=== PATIENT | male | born 1940 | race Two or more races ===

== ENCOUNTER → 2022-08-17 | Outpatient (CLI) | payer MEDICARE, OTHER | END | disposition home or self-care (01) | LOC: LAB 15:40 | PROVIDERS: ATTEND Family Medicine | DX: C44.619 Basal cell carcinoma of skin of left upper limb, including shoulder (principal) | CPT/HCPCS: 88302 ==

== ENCOUNTER 2022-10-10 11:42 | Inpatient (IN) | payer MEDICARE, OTHER ==
[~2022-10-10] VITALS: Ht 172.7 cm; Wt 59.4 kg
[2022-10-10 13:28] LABS: Hematocrit 43.1 % (41.0-53.0); Hemoglobin 14.6 g/dL (13.5-17.5); Mean Corpuscular Hemoglobin 31.5 pg (28.0-32.0); Mean Corpuscular Hgb Conc. 33.9 g/dL (32.0-36.0); Mean Corpuscular Volume 92.9 fL (80.0-100.0); Red Blood Cells 4.63 10^6/uL (4.5-5.90); Red Cell Distribution Width 13.6 % (11.8-14.3); White Blood Cell 7.2 10^3/uL (4.4-10.8)
[2022-10-10 13:33] LABS: Basophils % (manual) 0 (0.0-2.0); Blast Cells 0; Metamyelocytes % 0; Myelocytes % 0; Promyelocytes % 0; Reactive Lymphocytes 0
[2022-10-10 13:57] LABS: Calcium 9.6 mg/dL (8.5-10.1); Potassium 3.7 mmol/L (3.5-5.1)
[2022-10-10 14:03] LABS: Albumin 3.3 g/dL (3.4-5.0); BUN/Creatinine Ratio 32.6 (10.0-20.0); Magnesium 2.1 mg/dL (1.6-2.6); Total Protein 6.1 g/dL (6.4-8.2)
[2022-10-10 14:08] LABS: Band Neutrophils % (manual) 1; Eosinophils % (manual) 1 (0-7); Lymphocytes % (manual) 16 (10.0-50.0); Monocytes % (manual) 18 (0-12)
[2022-10-10] MEDS ORDERED: ACETAMINOPHEN 325 MG TAB PO PRN (15:45)
[2022-10-10] MEDS ORDERED: DEXTROSE (50%) 50ML SYRG IV PRN (15:45)
[2022-10-10] MEDS ORDERED: BRIM0.2S17 RIGHTEYE (15:47)
[2022-10-10] MEDS ORDERED: METF-370 (15:47)
[2022-10-10] MEDS ORDERED: ATOR20TA (15:47)
[2022-10-10] MEDS ORDERED: CARV6.2551 PO (15:47)
[2022-10-10] MEDS ORDERED: LISI20TA28 (15:47)
[2022-10-10] MEDS ORDERED: CLOP75TA70 PO (15:47)
[2022-10-10] MEDS ORDERED: TAM04C (15:47)
[2022-10-10] MEDS ORDERED: ATOR40TA52 PO (15:47)
[2022-10-10] MEDS ORDERED: SPIR25TA8 PO (15:47)
[2022-10-10] MEDS: SODIUM CHLORIDE 0.9% 1,000 ML IV SCH (16:06)
[2022-10-10] MEDS: HYDROcodone-ACET 5/325MG TAB PO PRN (16:06)
[2022-10-10] MEDS: ACCU-CHEK COMFORT CURVE STRIP VI SCH ×2 (17:19→23:42)
[2022-10-10] MEDS: InsuLIN REG 1unit/0.01ml Soln (100units/ml) SC SCH ×2 (17:23→23:55)
[2022-10-10 18:18] LABS: Urine Bacteria NONE SEEN /hpf (None Seen); Urine Blood Negative /uL (Negative); Urine Mucus FEW (None Seen); Urine Specific Gravity 1.035 (1.001-1.035); Urine WBC 2 /hpf (0 - 3)
[2022-10-10] MEDS: SPIRONOLACTONE 25 MG TAB PO SCH (23:43)
[2022-10-10] MEDS: ATORVASTATIN 20 MG TAB PO SCH (23:43)
[2022-10-10] MEDS: CARVEDILOL 3.125 MG TAB PO SCH (23:44)
[2022-10-10] MEDS: LISINOPRIL 20 MG TAB PO SCH (23:45)
[2022-10-11 01:59] VITALS: BP 127/77
[2022-10-11 05:00] VITALS: BP 150/83
[2022-10-11] MEDS: InsuLIN REG 1unit/0.01ml Soln (100units/ml) SC SCH ×4 (06:10→22:40)
[2022-10-11] MEDS: ACCU-CHEK COMFORT CURVE STRIP VI SCH ×4 (06:10→22:35)
[2022-10-11 08:23] VITALS: BP 156/82
[2022-10-11] MEDS ORDERED: CLOP75TA70 PO (08:42)
[2022-10-11] MEDS ORDERED: ASPI-378 PO (08:42)
[2022-10-11] MEDS ORDERED: CARV6.2551 PO (08:42)
[2022-10-11] MEDS ORDERED: ATOR40TA52 PO (08:42)
[2022-10-11] MEDS ORDERED: ACET-1156 PO (08:42)
[2022-10-11] MEDS ORDERED: SITA50TA PO (08:45)
[2022-10-11] MEDS ORDERED: LISI-283 PO (08:45)
[2022-10-11] MEDS ORDERED: NITR0.4D5 TD (08:45)
[2022-10-11] MEDS: SODIUM CHLORIDE 0.9% 1,000 ML IV SCH ×2 (09:38→22:34)
[2022-10-11] MEDS: SPIRONOLACTONE 25 MG TAB PO SCH ×2 (09:38→22:33)
[2022-10-11] MEDS: TAMSULOSIN HYDROCHLORIDE 0.4 MG CAP PO SCH (09:39)
[2022-10-11] MEDS: CARVEDILOL 3.125 MG TAB PO SCH ×2 (09:39→18:45)
[2022-10-11] MEDS: LISINOPRIL 20 MG TAB PO SCH ×2 (09:39→22:34)
[2022-10-11] MEDS: CLOPIDOGREL BISULFATE 75 MG TAB PO SCH (09:39)
[2022-10-11 09:41] LABS: Basophils # (auto) 0 10 ^3/uL (0-0.2); Basophils % (auto) 0.5 % (0.0-2.0); Eosinophils # (auto) 0.1 10 ^3/uL (0-0.8); Eosinophils % (auto) 0.8 % (0.0-7.0); Hematocrit 40.6 % (41.0-53.0); Lymphocytes # (auto) 0.9 10 ^3/uL (0.4-5.4); Lymphocytes % (auto) 11.2 % (10.0-50.0); Mean Corpuscular Hgb Conc. 34.6 g/dL (32.0-36.0); Mean Corpuscular Volume 92.6 fL (80.0-100.0); Monocytes # (auto) 1.4 10 ^3/uL (0-1.3); Monocytes % (auto) 17.4 % (0.0-12.0); Neutrophils # (auto) 5.6 10 ^3/uL (1.6-8.6); Neutrophils % (auto) 70.1 % (37.0-80.0); Nucleated Red Blood Cells % 0.2 %; Red Blood Cells 4.38 10^6/uL (4.5-5.90); Red Cell Distribution Width 13.6 % (11.8-14.3)
[2022-10-11] MEDS ORDERED: PATIENTS OWN MEDICATION (Atorvastatin Calcium 1 TAB) PO SCH (10:00)
[2022-10-11 10:14] LABS: Albumin 2.8 g/dL (3.4-5.0); Calcium 8.6 mg/dL (8.5-10.1); Potassium 3.1 mmol/L (3.5-5.1)
[2022-10-11 10:18] LABS: BUN/Creatinine Ratio 28.3 (10.0-20.0); Bilirubin, Total 0.9 mg/dL (0.2-1.0); Total Protein 5.8 g/dL (6.4-8.2)
[2022-10-11] MEDS ORDERED: POTASSIUM EFFERVESENT TAB 25 MEQ PO ONE (12:15)
[2022-10-11 13:00] VITALS: BP 143/84
[2022-10-11] MEDS ORDERED: cloNIDine HCL 0.1 MG TAB PO ONE (16:30)
[2022-10-11] MEDS ORDERED: ONDANSETRON HCL 4 MG/2 ML VIAL IV ONE (16:30)
[2022-10-11] MEDS ORDERED: LABETALOL HCL 5 MG/ML 4ML SYRINGE IV ONE (16:30)
[2022-10-11 17:30] VITALS: BP 176/100
[2022-10-11] MEDS ORDERED: CALCIUM W/VIT D (600MG/400IU) TAB PO ONE (18:45)
[2022-10-11] MEDS ORDERED: CALCITONIN 400unit/2ml Vial (200unit/ml) SC ONE (18:45)
[2022-10-11 22:02] VITALS: BP 127/76
[2022-10-11] MEDS: ATORVASTATIN 20 MG TAB PO SCH (22:34)
[2022-10-12 05:00] VITALS: BP 125/80
[2022-10-12] MEDS: ACCU-CHEK COMFORT CURVE STRIP VI SCH ×4 (06:05→22:20)
[2022-10-12] MEDS: CARVEDILOL 3.125 MG TAB PO SCH ×2 (06:05→17:59)
[2022-10-12] MEDS: InsuLIN REG 1unit/0.01ml Soln (100units/ml) SC SCH ×4 (06:07→22:22)
[2022-10-12 06:52] LABS: Albumin 2.8 g/dL (3.4-5.0); Calcium 9.1 mg/dL (8.5-10.1); Potassium 3.4 mmol/L (3.5-5.1)
[2022-10-12 06:55] LABS: Bilirubin, Total 0.8 mg/dL (0.2-1.0); Total Protein 5.7 g/dL (6.4-8.2)
[2022-10-12 08:44] VITALS: BP 121/72
[2022-10-12] MEDS: TAMSULOSIN HYDROCHLORIDE 0.4 MG CAP PO SCH (09:30)
[2022-10-12] MEDS: LISINOPRIL 20 MG TAB PO SCH ×2 (09:30→22:11)
[2022-10-12] MEDS: CLOPIDOGREL BISULFATE 75 MG TAB PO SCH (09:30)
[2022-10-12] MEDS: CALCIUM W/VIT D (600MG/400IU) TAB PO SCH ×2 (09:30→17:59)
[2022-10-12] MEDS: SPIRONOLACTONE 25 MG TAB PO SCH ×2 (09:30→22:10)
[2022-10-12] MEDS: CALCITONIN 200 UNIT/SPRAY NASAL SCH (10:00)
[2022-10-12 13:00] VITALS: BP 154/96
[2022-10-12 16:34] VITALS: BP 145/63
[2022-10-12] MEDS: SODIUM CHLORIDE 0.9% 1,000 ML IV SCH (17:45)
[2022-10-12 22:00] VITALS: BP 149/67
[2022-10-12] MEDS: ATORVASTATIN 20 MG TAB PO SCH (22:10)
[2022-10-12 23:05] LABS: Folate (Folic Acid) 8.59 ng/mL (5.38-24)
[2022-10-12 23:10] LABS: Cholesterol 111 mg/dL (< 200)
[2022-10-12 23:13] LABS: HDL Cholesterol 41 mg/dL (40-59); LDL Cholesterol 64 mg/dL (< 100); Triglycerides 89 mg/dL (< 150)
[2022-10-13 05:00] VITALS: BP 152/90
[2022-10-13] MEDS: ACCU-CHEK COMFORT CURVE STRIP VI SCH ×4 (06:05→21:35)
[2022-10-13] MEDS: CARVEDILOL 3.125 MG TAB PO SCH ×2 (06:07→18:30)
[2022-10-13] MEDS: InsuLIN REG 1unit/0.01ml Soln (100units/ml) SC SCH ×4 (06:15→21:40)
[2022-10-13] MEDS: CLOPIDOGREL BISULFATE 75 MG TAB PO SCH (08:30)
[2022-10-13] MEDS: SPIRONOLACTONE 25 MG TAB PO SCH ×2 (08:30→21:34)
[2022-10-13] MEDS: TAMSULOSIN HYDROCHLORIDE 0.4 MG CAP PO SCH (08:30)
[2022-10-13] MEDS: LISINOPRIL 20 MG TAB PO SCH ×2 (08:31→21:34)
[2022-10-13] MEDS: CALCIUM W/VIT D (600MG/400IU) TAB PO SCH ×2 (08:31→18:30)
[2022-10-13] MEDS: HYDROcodone-ACET 5/325MG TAB PO PRN (08:32)
[2022-10-13] MEDS: CALCITONIN 200 UNIT/SPRAY NASAL SCH (08:33)
[2022-10-13 09:00] VITALS: BP 157/87
[2022-10-13] MEDS: SODIUM CHLORIDE 0.9% 1,000 ML IV SCH (10:25)
[2022-10-13] MEDS: NITROGLYCERIN 0.4MG/HR TOPICAL PATCH TD SCH (12:00)
[2022-10-13 13:00] VITALS: BP 148/87
[2022-10-13] MEDS: LABETALOL HCL 5 MG/ML 4ML SYRINGE IV PRN (16:22)
[2022-10-13 17:00] VITALS: BP 160/104
[2022-10-13 17:08] VITALS: BP 149/87
[2022-10-13] MEDS: ATORVASTATIN 20 MG TAB PO SCH (21:34)
[2022-10-13 22:00] VITALS: BP 154/86
[2022-10-14] MEDS: SODIUM CHLORIDE 0.9% 1,000 ML IV SCH ×2 (03:05→06:03)
[2022-10-14 05:00] VITALS: BP 159/73
[2022-10-14] MEDS: CARVEDILOL 3.125 MG TAB PO SCH (06:00)
[2022-10-14] MEDS: ACCU-CHEK COMFORT CURVE STRIP VI SCH ×4 (06:05→21:19)
[2022-10-14] MEDS: InsuLIN REG 1unit/0.01ml Soln (100units/ml) SC SCH ×4 (06:10→21:22)
[2022-10-14 09:03] VITALS: BP 158/94
[2022-10-14] MEDS: TAMSULOSIN HYDROCHLORIDE 0.4 MG CAP PO SCH (11:03)
[2022-10-14] MEDS: CALCIUM W/VIT D (600MG/400IU) TAB PO SCH ×2 (11:04→18:00)
[2022-10-14] MEDS: SPIRONOLACTONE 25 MG TAB PO SCH ×2 (11:04→21:27)
[2022-10-14] MEDS: LISINOPRIL 20 MG TAB PO SCH ×2 (11:05→21:27)
[2022-10-14] MEDS: CALCITONIN 200 UNIT/SPRAY NASAL SCH (11:07)
[2022-10-14] MEDS: NITROGLYCERIN 0.4MG/HR TOPICAL PATCH TD SCH (11:09)
[2022-10-14 12:29] VITALS: BP 146/84
[2022-10-14] MEDS ORDERED: [UNRECOGNIZED DRUG - CODE] (14:53)
[2022-10-14 17:00] VITALS: BP 123/70
[2022-10-14] MEDS: ATORVASTATIN 20 MG TAB PO SCH (21:27)
[2022-10-14 22:00] VITALS: BP 147/82
[2022-10-15 05:00] VITALS: BP 158/84
[2022-10-15] MEDS: LABETALOL HCL 5 MG/ML 4ML SYRINGE IV PRN (05:23)
[2022-10-15 05:42] LABS: Basophils # (auto) 0.1 10 ^3/uL (0-0.2); Basophils % (auto) 1.1 % (0.0-2.0); Eosinophils # (auto) 0.2 10 ^3/uL (0-0.8); Eosinophils % (auto) 2.9 % (0.0-7.0); Hematocrit 40.6 % (41.0-53.0); Hemoglobin 14.5 g/dL (13.5-17.5); Lymphocytes # (auto) 1.2 10 ^3/uL (0.4-5.4); Lymphocytes % (auto) 14.1 % (10.0-50.0); Mean Corpuscular Hgb Conc. 35.7 g/dL (32.0-36.0); Mean Corpuscular Volume 89.7 fL (80.0-100.0); Monocytes # (auto) 1.2 10 ^3/uL (0-1.3); Monocytes % (auto) 14.3 % (0.0-12.0); Neutrophils # (auto) 5.8 10 ^3/uL (1.6-8.6); Neutrophils % (auto) 67.6 % (37.0-80.0); Nucleated Red Blood Cells % 0.1 %; Red Blood Cells 4.52 10^6/uL (4.5-5.90); Red Cell Distribution Width 13.7 % (11.8-14.3); White Blood Cell 8.5 10^3/uL (4.4-10.8)
[2022-10-15 05:50] LABS: Potassium 3.3 mmol/L (3.5-5.1)
[2022-10-15 05:51] LABS: BUN/Creatinine Ratio 22.4 (10.0-20.0); Calcium 9.2 mg/dL (8.5-10.1)
[2022-10-15 06:05] LABS: INR 1.11 (0.9-1.15); Partial Thromboplastin Time 25.9 sec (24.6-33.4)
[2022-10-15] MEDS: InsuLIN REG 1unit/0.01ml Soln (100units/ml) SC SCH ×4 (06:09→21:13)
[2022-10-15] MEDS: ACCU-CHEK COMFORT CURVE STRIP VI SCH ×4 (06:09→21:12)
[2022-10-15] MEDS: CARVEDILOL 3.125 MG TAB PO SCH ×2 (06:42→18:45)
[2022-10-15] MEDS ORDERED: MIDAZOLAM HCL 2MG/2ML 2ml VIAL (1mg/ml) IV ONE (08:00)
[2022-10-15] MEDS ORDERED: fentaNYL CITRATE 100 MCG/2 ML VL IV ONE (08:00)
[2022-10-15] MEDS ORDERED: LIDOCAINE VISCOUS 2% 15ML UD MT ONE (08:00)
[2022-10-15] MEDS: TAMSULOSIN HYDROCHLORIDE 0.4 MG CAP PO SCH (09:41)
[2022-10-15] MEDS: SPIRONOLACTONE 25 MG TAB PO SCH ×2 (09:43→21:18)
[2022-10-15] MEDS: LISINOPRIL 20 MG TAB PO SCH ×2 (09:43→21:18)
[2022-10-15] MEDS: CALCITONIN 200 UNIT/SPRAY NASAL SCH (09:45)
[2022-10-15] MEDS: NITROGLYCERIN 0.4MG/HR TOPICAL PATCH TD SCH (09:45)
[2022-10-15] MEDS: CALCIUM W/VIT D (600MG/400IU) TAB PO SCH ×2 (09:46→19:42)
[2022-10-15] MEDS: SODIUM CHLORIDE 0.9% 1,000 ML IV SCH (12:25)
[2022-10-15 13:00] VITALS: BP 158/83
[2022-10-15 17:00] VITALS: BP 155/88
[2022-10-15] MEDS: ATORVASTATIN 20 MG TAB PO SCH (21:18)
[2022-10-15 21:46] VITALS: BP 120/73
[2022-10-15] MEDS: HYDROcodone-ACET 5/325MG TAB PO PRN (23:28)
[2022-10-16] VITALS (8 sets, daily range): BP systolic 100–140; BP diastolic 59–80
[2022-10-16] MEDS ORDERED: dilTIAZem 25 MG/5 ML VIAL IV ONE (00:45)
[2022-10-16] MEDS: CARVEDILOL 3.125 MG TAB PO SCH (06:07)
[2022-10-16] MEDS: SODIUM CHLORIDE 0.9% 1,000 ML IV SCH (06:07)
[2022-10-16] MEDS: ACCU-CHEK COMFORT CURVE STRIP VI SCH ×2 (06:13→12:37)
[2022-10-16] MEDS: InsuLIN REG 1unit/0.01ml Soln (100units/ml) SC SCH ×2 (06:17→12:38)
[2022-10-16] MEDS ORDERED: CARVEDILOL 12.5 MG TAB PO SCH (08:00)
[2022-10-16] MEDS: TAMSULOSIN HYDROCHLORIDE 0.4 MG CAP PO SCH (09:14)
[2022-10-16] MEDS: SPIRONOLACTONE 25 MG TAB PO SCH (09:15)
[2022-10-16] MEDS: LISINOPRIL 20 MG TAB PO SCH (09:15)
[2022-10-16] MEDS: CALCIUM W/VIT D (600MG/400IU) TAB PO SCH (09:15)
[2022-10-16] MEDS: NITROGLYCERIN 0.4MG/HR TOPICAL PATCH TD SCH (09:19)
[2022-10-16 10:01] LABS: Free T3 2.64 pg/mL (2.3-4.2); Free T4 (Free Thyroxine) 1.49 ng/dL (0.89-1.76)
[2022-10-16] MEDS: CALCITONIN 200 UNIT/SPRAY NASAL SCH (15:16)
== END 2022-10-16 17:53 | disposition home health service (06) | DRG 551 ==
LOC: ER 11:42 → OVERFLOW 15:42 → EAST 23:44 → TELE-EAST 10-11 19:16
PROVIDERS: ADMIT Nurse Practitioner Family; ATTEND Internal Medicine
DX: S32.019A Unspecified fracture of first lumbar vertebra, initial encounter for closed fracture (principal); G93.41 Metabolic encephalopathy; S22.088A Other fracture of T11-T12 vertebra, initial encounter for closed fracture; E46 Unspecified protein-calorie malnutrition; M80.08XA Age-related osteoporosis with current pathological fracture, vertebra(e), initial encounter for fracture; Z68.1 Body mass index [BMI] 19.9 or less, adult; I16.0 Hypertensive urgency; E11.9 Type 2 diabetes mellitus without complications; I10 Essential (primary) hypertension; R29.6 Repeated falls; I71.43 Infrarenal abdominal aortic aneurysm, without rupture; M50.30 Other cervical disc degeneration, unspecified cervical region; E78.5 Hyperlipidemia, unspecified; I11.0 Hypertensive heart disease with heart failure; I25.10 Atherosclerotic heart disease of native coronary artery without angina pectoris; I48.91 Unspecified atrial fibrillation; I50.9 Heart failure, unspecified; I25.2 Old myocardial infarction; R31.0 Gross hematuria; R33.8 Other retention of urine; N40.1 Benign prostatic hyperplasia with lower urinary tract symptoms; Z79.82 Long term (current) use of aspirin; Z79.899 Other long term (current) drug therapy; Z86.73 Personal history of transient ischemic attack (TIA), and cerebral infarction without residual deficits; Z86.79 Personal history of other diseases of the circulatory system; Z88.0 Allergy status to penicillin; Z95.5 Presence of coronary angioplasty implant and graft; R39.15 Urgency of urination; W18.39XA Other fall on same level, initial encounter; Y93.89 Activity, other specified; Y92.89 Other specified places as the place of occurrence of the external cause; Y99.8 Other external cause status
CPT/HCPCS: 36415; 70450; 70551; 71045; 72125; 72128; 72131; 73080; 76775; 76856; 80048; 80053; 80061; 81001; 82607; 82746; 82962; 83036; 83735; 83880; 84439; 84443; 84481; 84484; 85007; 85025; 85027; 85610; 85730; 86850; 86900; 86901; 87426; 93005; 93306; 93886; 95819; 96360; 96372; 97110; 97116; 97163; 97530; G0378; J1815; J2250; J2405; J3490

== ENCOUNTER 2022-10-27 18:49 | Inpatient (IN) | payer MEDICARE, OTHER ==
[~2022-10-27] VITALS: Ht 177.8 cm; Wt 69.2 kg
[~2022-10-27 18:49] MED LIST: ACET-1156 PO; ASPI-378 PO; ATOR40TA52 PO; BRIM0.2S17 RIGHTEYE; CARV6.2551 PO; CLOP75TA70 PO; LISI-283 PO; LISI20TA28; METF-370; NITR0.4D5 TD; SITA50TA PO; SPIR25TA8 PO; TAM04C; [UNRECOGNIZED DRUG - CODE]
[2022-10-27] MEDS ORDERED: cefTRIAXone SOD 1,000 MG VL IV ONE (20:00)
[2022-10-27 20:40] LABS: Basophils # (auto) 0 10 ^3/uL (0-0.2); Basophils % (auto) 0.5 % (0.0-2.0); Eosinophils # (auto) 0.1 10 ^3/uL (0-0.8); Eosinophils % (auto) 1.3 % (0.0-7.0); Hematocrit 37.4 % (41.0-53.0); Hemoglobin 12.6 g/dL (13.5-17.5); Lymphocytes # (auto) 1.1 10 ^3/uL (0.4-5.4); Lymphocytes % (auto) 15.6 % (10.0-50.0); Mean Corpuscular Hemoglobin 31.5 pg (28.0-32.0); Mean Corpuscular Hgb Conc. 33.7 g/dL (32.0-36.0); Mean Corpuscular Volume 93.5 fL (80.0-100.0); Monocytes # (auto) 1.1 10 ^3/uL (0-1.3); Monocytes % (auto) 16.3 % (0.0-12.0); Neutrophils # (auto) 4.5 10 ^3/uL (1.6-8.6); Neutrophils % (auto) 66.3 % (37.0-80.0); Red Blood Cells 4.01 10^6/uL (4.5-5.90); Red Cell Distribution Width 14.2 % (11.8-14.3); White Blood Cell 6.8 10^3/uL (4.4-10.8)
[2022-10-27 20:50] LABS: Albumin 2.8 g/dL (3.4-5.0); Calcium 9.3 mg/dL (8.5-10.1); Potassium 4.1 mmol/L (3.5-5.1)
[2022-10-27 20:54] LABS: BUN/Creatinine Ratio 39.2 (10.0-20.0); Bilirubin, Total 0.5 mg/dL (0.2-1.0); Total Protein 5.5 g/dL (6.4-8.2)
[2022-10-27 22:08] LABS: Urine Bacteria FEW /hpf (None Seen); Urine Blood 3+ /uL (Negative); Urine Budding Yeast MODERATE /hpf (None Seen); Urine Mucus FEW (None Seen); Urine Specific Gravity 1.022 (1.001-1.035); Urine WBC 937 /hpf (0 - 3); Urine WBC Clumps PRESENT /hpf (None Seen)
[2022-10-27] MEDS ORDERED: DEXTROSE (50%) 50ML SYRG IV PRN (23:00)
[2022-10-27] MEDS ORDERED: SODIUM CHLORIDE 0.9% 1,000 ML IV SCH (23:00)
[2022-10-27] MEDS ORDERED: DOCUSATE SOD 100 MG CAP PO PRN (23:00)
[2022-10-27] MEDS ORDERED: ONDANSETRON HCL 4 MG/2 ML VIAL IV PRN (23:00)
[2022-10-27] MEDS: levoFLOXacin 250MG 50 ML IV SCH (23:04)
[2022-10-27] MEDS ORDERED: MORPHINE SULFATE INJ 2 MG/ml SYRG IV PRN (23:30)
[2022-10-27] MEDS ORDERED: NITROGLYCERIN 0.4 MG SL TAB SL PRN (23:30)
[2022-10-28] MEDS ORDERED: CARVEDILOL 12.5 MG TAB PO ONE (00:15)
[2022-10-28] MEDS ORDERED: CARVEDILOL 3.125 MG TAB PO ONE (01:00)
[2022-10-28 05:50] LABS: Basophils # (auto) 0.1 10 ^3/uL (0-0.2); Basophils % (auto) 0.9 % (0.0-2.0); Eosinophils # (auto) 0.1 10 ^3/uL (0-0.8); Eosinophils % (auto) 1.6 % (0.0-7.0); Hematocrit 35.8 % (41.0-53.0); Hemoglobin 12.2 g/dL (13.5-17.5); Lymphocytes # (auto) 1.3 10 ^3/uL (0.4-5.4); Lymphocytes % (auto) 20.3 % (10.0-50.0); Mean Corpuscular Hgb Conc. 34.2 g/dL (32.0-36.0); Mean Corpuscular Volume 93.7 fL (80.0-100.0); Neutrophils # (auto) 3.8 10 ^3/uL (1.6-8.6); Neutrophils % (auto) 61.2 % (37.0-80.0); Red Blood Cells 3.82 10^6/uL (4.5-5.90); Red Cell Distribution Width 14.2 % (11.8-14.3); White Blood Cell 6.2 10^3/uL (4.4-10.8)
[2022-10-28 06:11] LABS: Potassium 4.5 mmol/L (3.5-5.1)
[2022-10-28 06:23] LABS: Albumin 2.7 g/dL (3.4-5.0); BUN/Creatinine Ratio 29.9 (10.0-20.0); Bilirubin, Total 0.6 mg/dL (0.2-1.0); Calcium 8.7 mg/dL (8.5-10.1)
[2022-10-28] MEDS: ACCU-CHEK COMFORT CURVE STRIP VI SCH ×4 (07:23→22:02)
[2022-10-28] MEDS: InsuLIN REG 1unit/0.01ml Soln (100units/ml) SC SCH ×4 (07:45→22:01)
[2022-10-28] MEDS: CARVEDILOL 3.125 MG TAB PO SCH ×2 (09:11→21:20)
[2022-10-28] MEDS: CLOPIDOGREL BISULFATE 75 MG TAB PO SCH (09:11)
[2022-10-28] MEDS: ASPirin 81 mg TAB PO SCH (09:11)
[2022-10-28] MEDS: MULTIPLE VITAMIN TAB PO SCH (09:11)
[2022-10-28] MEDS: HYDROcodone-ACET 5/325MG TAB PO PRN (09:15)
[2022-10-28 09:34] LABS: INR 1.09 (0.9-1.15); Partial Thromboplastin Time 27.4 sec (24.6-33.4)
[2022-10-28] MEDS ORDERED: CARVEDILOL 12.5 MG TAB PO SCH (10:00)
[2022-10-28] MEDS: SODIUM CHLORIDE 0.9% 1,000 ML IV SCH ×2 (12:27→19:01)
[2022-10-28 13:00] VITALS: BP 118/73
[2022-10-28 17:10] VITALS: BP 112/78
[2022-10-28] MEDS: levoFLOXacin 250MG 50 ML IV SCH (21:10)
[2022-10-28] MEDS: ATORVASTATIN 20 MG TAB PO SCH (21:11)
[2022-10-28 22:00] VITALS: BP 133/89
[2022-10-28] MEDS ORDERED: AMIODARONE HCL 150 MG in D5W 5% 100 ML IV ONE (23:00)
[2022-10-28] MEDS ORDERED: AMIODARONE 450mg/250ml AE 250 ML IV SCH (23:00)
[2022-10-28] MEDS ORDERED: AMIODARONE HCL (50 MG/ ML) 3 ML VIAL IV ONE (23:08)
[2022-10-28 23:23] VITALS: BP 138/71
[2022-10-29] MEDS: SODIUM CHLORIDE 0.9% 1,000 ML IV SCH ×4 (00:46→23:16)
[2022-10-29 05:00] VITALS: BP 137/96
[2022-10-29] MEDS: AMIODARONE 450mg/250ml AE 250 ML IV SCH ×2 (05:05→21:10)
[2022-10-29] MEDS: ACCU-CHEK COMFORT CURVE STRIP VI SCH ×4 (06:30→22:10)
[2022-10-29] MEDS: InsuLIN REG 1unit/0.01ml Soln (100units/ml) SC SCH ×4 (06:31→22:00)
[2022-10-29 09:00] VITALS: BP 140/98
[2022-10-29] MEDS: MULTIPLE VITAMIN TAB PO SCH (10:08)
[2022-10-29] MEDS: CLOPIDOGREL BISULFATE 75 MG TAB PO SCH (10:08)
[2022-10-29] MEDS: ASPirin 81 mg TAB PO SCH (10:09)
[2022-10-29] MEDS: CARVEDILOL 3.125 MG TAB PO SCH ×2 (10:10→21:37)
[2022-10-29] MEDS: ENOXAPARIN SOD 100 MG/1 ML SYRINGE SC SCH ×2 (10:10→21:10)
[2022-10-29] MEDS ORDERED: DORZ2SOL18 RIGHTEYE (10:32)
[2022-10-29] MEDS ORDERED: PRED1SUS4 RIGHTEYE (10:32)
[2022-10-29 16:56] VITALS: BP 168/89
[2022-10-29] MEDS: prednisoLONE ACETATE 1% OPTH SUSP 5ML RIGHTEYE SCH ×2 (18:00→22:13)
[2022-10-29] MEDS: DORZOLAM-TIMOLOL(2/0.5%) OPTH(EYE) SOLN 10ML RIGHTEYE SCH ×2 (18:00→22:12)
[2022-10-29] MEDS: BRIMONIDINE 0.2% OPTH Soln 5ml RIGHTEYE SCH ×2 (18:00→22:12)
[2022-10-29] MEDS: levoFLOXacin 250MG 50 ML IV SCH (21:10)
[2022-10-29] MEDS: ATORVASTATIN 20 MG TAB PO SCH (21:11)
[2022-10-29 22:00] VITALS: BP 147/96
[2022-10-30] MEDS: SODIUM CHLORIDE 0.9% 1,000 ML IV SCH ×3 (04:00→17:21)
[2022-10-30 05:00] VITALS: BP 149/99
[2022-10-30] MEDS: prednisoLONE ACETATE 1% OPTH SUSP 5ML RIGHTEYE SCH ×4 (05:18→22:16)
[2022-10-30] MEDS: DORZOLAM-TIMOLOL(2/0.5%) OPTH(EYE) SOLN 10ML RIGHTEYE SCH ×4 (05:19→22:16)
[2022-10-30] MEDS: BRIMONIDINE 0.2% OPTH Soln 5ml RIGHTEYE SCH ×4 (05:19→22:16)
[2022-10-30] MEDS: ACCU-CHEK COMFORT CURVE STRIP VI SCH ×4 (06:28→22:14)
[2022-10-30] MEDS: InsuLIN REG 1unit/0.01ml Soln (100units/ml) SC SCH ×4 (06:28→22:28)
[2022-10-30] MEDS: ENOXAPARIN SOD 100 MG/1 ML SYRINGE SC SCH (08:28)
[2022-10-30] MEDS ORDERED: LIDOCAINE VISCOUS 2% 15ML UD PO ONE (08:30)
[2022-10-30] MEDS ORDERED: fentaNYL CITRATE 100 MCG/2 ML VL IV ONE (08:30)
[2022-10-30] MEDS ORDERED: MIDAZOLAM HCL 2MG/2ML 2ml VIAL (1mg/ml) IV ONE (08:30)
[2022-10-30 08:46] VITALS: BP 146/101
[2022-10-30] MEDS: MULTIPLE VITAMIN TAB PO SCH (10:44)
[2022-10-30] MEDS: CARVEDILOL 3.125 MG TAB PO SCH ×2 (10:45→22:13)
[2022-10-30] MEDS: ASPirin 81 mg TAB PO SCH (10:46)
[2022-10-30] MEDS: AMIODARONE 450mg/250ml AE 250 ML IV SCH (10:47)
[2022-10-30] MEDS ORDERED: CALC200S4 INH (11:20)
[2022-10-30] MEDS ORDERED: METF-370 PO (11:20)
[2022-10-30] MEDS ORDERED: SITA50TA PO (11:20)
[2022-10-30 12:56] VITALS: BP 129/85
[2022-10-30 17:06] VITALS: BP 103/76
[2022-10-30] MEDS: levoFLOXacin 250MG 50 ML IV SCH (22:01)
[2022-10-30] MEDS: ATORVASTATIN 20 MG TAB PO SCH (22:12)
[2022-10-30] MEDS: ENOXAPARIN SOD 60 MG/0.6 ML SYRINGE SC SCH (22:14)
[2022-10-30 22:31] VITALS: BP 144/77
[2022-10-31] MEDS: AMIODARONE 450mg/250ml AE 250 ML IV SCH ×2 (04:25→17:24)
[2022-10-31 05:13] VITALS: BP 146/83
[2022-10-31] MEDS: DORZOLAM-TIMOLOL(2/0.5%) OPTH(EYE) SOLN 10ML RIGHTEYE SCH ×4 (05:41→21:19)
[2022-10-31] MEDS: BRIMONIDINE 0.2% OPTH Soln 5ml RIGHTEYE SCH ×4 (05:43→21:19)
[2022-10-31] MEDS: prednisoLONE ACETATE 1% OPTH SUSP 5ML RIGHTEYE SCH ×4 (05:46→21:19)
[2022-10-31] MEDS: SODIUM CHLORIDE 0.9% 1,000 ML IV SCH ×4 (05:47→20:00)
[2022-10-31] MEDS: ACCU-CHEK COMFORT CURVE STRIP VI SCH ×4 (05:47→21:33)
[2022-10-31] MEDS: InsuLIN REG 1unit/0.01ml Soln (100units/ml) SC SCH ×4 (07:11→21:38)
[2022-10-31 09:13] VITALS: BP 100/73
[2022-10-31] MEDS: MULTIPLE VITAMIN TAB PO SCH (09:38)
[2022-10-31] MEDS: ASPirin 81 mg TAB PO SCH (09:38)
[2022-10-31] MEDS: CARVEDILOL 3.125 MG TAB PO SCH ×2 (09:39→21:22)
[2022-10-31] MEDS: ENOXAPARIN SOD 60 MG/0.6 ML SYRINGE SC SCH ×2 (09:39→21:39)
[2022-10-31 12:27] VITALS: BP 138/75
[2022-10-31 20:00] VITALS: BP 136/74
[2022-10-31] MEDS: ATORVASTATIN 20 MG TAB PO SCH (21:20)
[2022-10-31] MEDS: levoFLOXacin 250MG 50 ML IV SCH (21:24)
[2022-11-01] VITALS (7 sets, daily range): BP systolic 136–169; BP diastolic 74–102
[2022-11-01] MEDS: SODIUM CHLORIDE 0.9% 1,000 ML IV SCH ×2 (02:40→09:51)
[2022-11-01] MEDS: DORZOLAM-TIMOLOL(2/0.5%) OPTH(EYE) SOLN 10ML RIGHTEYE SCH ×4 (06:00→22:00)
[2022-11-01] MEDS: BRIMONIDINE 0.2% OPTH Soln 5ml RIGHTEYE SCH ×4 (06:00→22:00)
[2022-11-01] MEDS: prednisoLONE ACETATE 1% OPTH SUSP 5ML RIGHTEYE SCH ×4 (06:00→22:00)
[2022-11-01] MEDS: ACCU-CHEK COMFORT CURVE STRIP VI SCH ×4 (06:11→22:00)
[2022-11-01] MEDS: InsuLIN REG 1unit/0.01ml Soln (100units/ml) SC SCH ×4 (06:13→22:00)
[2022-11-01] MEDS: AMIODARONE 450mg/250ml AE 250 ML IV SCH (07:33)
[2022-11-01] MEDS: ASPirin 81 mg TAB PO SCH (09:51)
[2022-11-01] MEDS: MULTIPLE VITAMIN TAB PO SCH (09:51)
[2022-11-01] MEDS: ENOXAPARIN SOD 60 MG/0.6 ML SYRINGE SC SCH (09:52)
[2022-11-01] MEDS: CARVEDILOL 3.125 MG TAB PO SCH ×2 (09:52→22:00)
[2022-11-01] MEDS: levoFLOXacin 250MG 50 ML IV SCH (21:00)
[2022-11-01] MEDS: APIXABAN 2.5 MG TAB PO SCH (22:00)
[2022-11-01] MEDS: AMIODARONE HCL 200 MG TAB PO SCH (22:00)
[2022-11-01] MEDS: ATORVASTATIN 20 MG TAB PO SCH (22:00)
[2022-11-02 05:00] VITALS: BP 167/103
[2022-11-02] MEDS: DORZOLAM-TIMOLOL(2/0.5%) OPTH(EYE) SOLN 10ML RIGHTEYE SCH ×4 (05:29→22:00)
[2022-11-02] MEDS: BRIMONIDINE 0.2% OPTH Soln 5ml RIGHTEYE SCH ×4 (05:29→22:00)
[2022-11-02] MEDS: prednisoLONE ACETATE 1% OPTH SUSP 5ML RIGHTEYE SCH ×4 (05:29→22:00)
[2022-11-02] MEDS ORDERED: hydrALAZINE HCL 20 MG/ML VL IV PRN (05:30)
[2022-11-02] MEDS: InsuLIN REG 1unit/0.01ml Soln (100units/ml) SC SCH ×4 (06:31→22:00)
[2022-11-02] MEDS: ACCU-CHEK COMFORT CURVE STRIP VI SCH ×4 (06:32→22:00)
[2022-11-02 08:35] VITALS: BP 121/71
[2022-11-02] MEDS: APIXABAN 2.5 MG TAB PO SCH ×2 (09:12→21:59)
[2022-11-02] MEDS: ASPirin 81 mg TAB PO SCH (09:12)
[2022-11-02] MEDS: MULTIPLE VITAMIN TAB PO SCH (09:12)
[2022-11-02 10:00] VITALS: BP 121/71
[2022-11-02 11:15] VITALS: BP 155/93
[2022-11-02] MEDS: AMIODARONE HCL 200 MG TAB PO SCH ×2 (11:31→21:58)
[2022-11-02] MEDS: CARVEDILOL 3.125 MG TAB PO SCH ×2 (11:32→21:59)
[2022-11-02 16:30] VITALS: BP 150/95
[2022-11-02] MEDS: levoFLOXacin 250MG 50 ML IV SCH (21:00)
[2022-11-02 21:56] VITALS: BP 133/92
[2022-11-02] MEDS: ATORVASTATIN 20 MG TAB PO SCH (21:58)
[2022-11-03 05:00] VITALS: BP 157/99
[2022-11-03] MEDS: prednisoLONE ACETATE 1% OPTH SUSP 5ML RIGHTEYE SCH ×2 (06:00→11:59)
[2022-11-03] MEDS: DORZOLAM-TIMOLOL(2/0.5%) OPTH(EYE) SOLN 10ML RIGHTEYE SCH ×2 (06:00→11:58)
[2022-11-03] MEDS: BRIMONIDINE 0.2% OPTH Soln 5ml RIGHTEYE SCH ×2 (06:00→11:58)
[2022-11-03] MEDS: ACCU-CHEK COMFORT CURVE STRIP VI SCH ×2 (06:42→11:58)
[2022-11-03] MEDS: InsuLIN REG 1unit/0.01ml Soln (100units/ml) SC SCH ×2 (06:42→12:01)
[2022-11-03 09:10] VITALS: BP 146/90
[2022-11-03] MEDS: APIXABAN 2.5 MG TAB PO SCH (09:52)
[2022-11-03] MEDS: ASPirin 81 mg TAB PO SCH (09:52)
[2022-11-03] MEDS: MULTIPLE VITAMIN TAB PO SCH (09:52)
[2022-11-03] MEDS: AMIODARONE HCL 200 MG TAB PO SCH (09:53)
[2022-11-03] MEDS: CARVEDILOL 3.125 MG TAB PO SCH (09:53)
[2022-11-03] MEDS: HYDROcodone-ACET 5/325MG TAB PO PRN (09:53)
[2022-11-03] MEDS ORDERED: CIPR-173 PO (10:31)
[2022-11-03] MEDS ORDERED: APIX2.5T PO (10:31)
[2022-11-03] MEDS ORDERED: AMIO200T33 PO (10:31)
[2022-11-03 13:00] VITALS: BP 157/91
== END 2022-11-03 17:19 | disposition home health service (06) | DRG 871 ==
LOC: ER 18:49 → EDBD 18:49 → OVERFLOW 23:26 → TELE-WESTW 10-28 10:34
PROVIDERS: ADMIT Nurse Practitioner Family; ATTEND Family Medicine
PROC: B246ZZ4 Ultrasonography of Right and Left Heart, Transesophageal (ICD-10-PCS; principal; 2022-10-30)
PROC: 5A2204Z Restoration of Cardiac Rhythm, Single (ICD-10-PCS; 2022-10-30)
DX: A41.9 Sepsis, unspecified organism (principal); G93.41 Metabolic encephalopathy; R65.21 Severe sepsis with septic shock; N39.0 Urinary tract infection, site not specified; I48.19 Other persistent atrial fibrillation; M48.56XA Collapsed vertebra, not elsewhere classified, lumbar region, initial encounter for fracture; I48.92 Unspecified atrial flutter; N12 Tubulo-interstitial nephritis, not specified as acute or chronic; E11.65 Type 2 diabetes mellitus with hyperglycemia; E86.0 Dehydration; R31.9 Hematuria, unspecified; E78.00 Pure hypercholesterolemia, unspecified; E88.09 Other disorders of plasma-protein metabolism, not elsewhere classified; I25.10 Atherosclerotic heart disease of native coronary artery without angina pectoris; I50.9 Heart failure, unspecified; I11.0 Hypertensive heart disease with heart failure; I71.40 Abdominal aortic aneurysm, without rupture, unspecified; B95.7 Other staphylococcus as the cause of diseases classified elsewhere; N40.0 Benign prostatic hyperplasia without lower urinary tract symptoms; Z88.0 Allergy status to penicillin; Z74.01 Bed confinement status; Z80.0 Family history of malignant neoplasm of digestive organs; Z82.3 Family history of stroke; Z86.73 Personal history of transient ischemic attack (TIA), and cerebral infarction without residual deficits
CPT/HCPCS: 36415; 71045; 80053; 81001; 82962; 83605; 84484; 84702; 85025; 85610; 85730; 87040; 87081; 87086; 87088; 87186; 92960; 93005; 93306; 93312; 97110; 97116; 97163; 97530; 99152; G0378; J0696; J1815; J2250; J7060

== ENCOUNTER 2022-12-06 08:53 | Inpatient (IN) | payer MEDICARE, OTHER ==
[~2022-12-06] VITALS: Ht 190.5 cm; Wt 72.5 kg
[~2022-12-06 08:53] MED LIST changes: -ACET-1156 PO; +ACET-1881 PO; +AMIO200T33 PO; +APIX2.5T PO; -ATOR40TA52 PO; -BRIM0.2S17 RIGHTEYE; +CALC200S4 INH; +CIPR-173 PO; -CLOP75TA70 PO; -LISI-283 PO; -LISI20TA28; +LISI20TA56; -METF-370; +METF-370 PO; -TAM04C; -[UNRECOGNIZED DRUG - CODE]
[2022-12-06] MEDS ORDERED: IPRATROPIUM BROM 0.5 MG/2.5ML INH SOL NEB ONE (09:15)
[2022-12-06] MEDS ORDERED: dilTIAZem 25 MG/5 ML VIAL IV ONE ×2 (09:15→16:00)
[2022-12-06] MEDS ORDERED: LEVALBUTEROL HCL 1.25 MG/3 ML NEB NEB SCH (09:15)
[2022-12-06] MEDS ORDERED: SODIUM CHLORIDE 0.9% 1,950 ML IV ONE (09:15)
[2022-12-06] MEDS ORDERED: levoFLOXacin 750MG 150 ML IV ONE (09:15)
[2022-12-06] MEDS ORDERED: DexAMETHasone INJECTION 10 MG in D5W 5% 50 ML IV ONE (09:30)
[2022-12-06 09:41] LABS: Basophils # (auto) 0 10 ^3/uL (0-0.2); Basophils % (auto) 0.1 % (0.0-2.0); Eosinophils # (auto) 0 10 ^3/uL (0-0.8); Hematocrit 41.7 % (41.0-53.0); Hemoglobin 13.8 g/dL (13.5-17.5); Lymphocytes # (auto) 0.4 10 ^3/uL (0.4-5.4); Lymphocytes % (auto) 2.1 % (10.0-50.0); Mean Corpuscular Hemoglobin 30.8 pg (28.0-32.0); Mean Corpuscular Hgb Conc. 33.2 g/dL (32.0-36.0); Monocytes # (auto) 1.2 10 ^3/uL (0-1.3); Monocytes % (auto) 6.3 % (0.0-12.0); Neutrophils # (auto) 17.6 10 ^3/uL (1.6-8.6); Neutrophils % (auto) 91.5 % (37.0-80.0); Red Blood Cells 4.48 10^6/uL (4.5-5.90); Red Cell Distribution Width 13.7 % (11.8-14.3); White Blood Cell 19.3 10^3/uL (4.4-10.8)
[2022-12-06] MEDS ORDERED: DexAMETHasone SOD PHOS 10MG/1ML VIAL INJ IV ONE (09:45)
[2022-12-06] MEDS ORDERED: VANCOMYCIN 1GM/250ML 250 ML IV ONE (10:00)
[2022-12-06 10:02] LABS: Albumin 2.2 g/dL (3.4-5.0); Calcium 8.5 mg/dL (8.5-10.1); Potassium 3.9 mmol/L (3.5-5.1)
[2022-12-06 10:05] LABS: BUN/Creatinine Ratio 34.7 (10.0-20.0); Total Protein 5.4 g/dL (6.4-8.2)
[2022-12-06 10:28] LABS: INR 1.16 (0.9-1.15); Partial Thromboplastin Time 26.5 sec (24.6-33.4)
[2022-12-06] MEDS ORDERED: KETOROLAC TROMETH 30 MG/ML 1ML VIAL IV ONE (11:15)
[2022-12-06] MEDS ORDERED: DexAMETHasone INJECTION 10 MG in SODIUM CHL 3% 500 ML IV SCH (12:00)
[2022-12-06 12:35] LABS: Urine Bacteria NONE SEEN /hpf (None Seen); Urine Blood 1+ /uL (Negative); Urine Mucus FEW (None Seen); Urine Specific Gravity 1.018 (1.001-1.035); Urine WBC 5 /hpf (0 - 3)
[2022-12-06] MEDS ORDERED: SODIUM CHLORIDE 0.9% 1,000 ML IV SCH (14:15)
[2022-12-06] MEDS ORDERED: MORPHINE SULFATE INJ 2 MG/ml SYRG IV PRN (14:15)
[2022-12-06] MEDS ORDERED: DEXTROSE (50%) 50ML SYRG IV PRN (14:15)
[2022-12-06] MEDS: SODIUM CHLORIDE 0.9% 1,000 ML IV SCH (15:19)
[2022-12-06 15:54] VITALS: BP 127/83
[2022-12-06] MEDS ORDERED: VANCOMYCIN PER PHARMACY 0 MG IV SCH (16:30)
[2022-12-06] MEDS ORDERED: dilTIAZem 125mg/125ml BAG KIT 125 ML IV ONE (16:54)
[2022-12-06] MEDS: dilTIAZem 125mg/125ml BAG KIT 100 ML IV SCH (16:58)
[2022-12-06] MEDS: ACCU-CHEK COMFORT CURVE STRIP VI SCH (18:08)
[2022-12-06 18:10] VITALS: BP 143/104
[2022-12-06] MEDS: InsuLIN REG 1unit/0.01ml Soln (100units/ml) SC SCH (18:13)
[2022-12-06] MEDS: LEVALBUTEROL HCL 1.25 MG/3 ML NEB NEB SCH ×2 (18:58→23:52)
[2022-12-06] MEDS: IPRATROPIUM BROM 0.5 MG/2.5ML INH SOL NEB PRN ×2 (18:59→23:53)
[2022-12-06 19:55] VITALS: BP 126/76
[2022-12-06] MEDS: CEFEPIME 1GM/ 50ML 50 ML IV SCH ×2 (20:20→22:00)
[2022-12-06 21:45] VITALS: BP 106/65
[2022-12-06] MEDS: CARVEDILOL 3.125 MG TAB PO SCH (22:00)
[2022-12-06] MEDS: AMIODARONE HCL 200 MG TAB PO SCH (22:00)
[2022-12-06] MEDS: SPIRONOLACTONE 25 MG TAB PO SCH (22:00)
[2022-12-06] MEDS ORDERED: ATORVASTATIN 20 MG TAB PO SCH (22:00)
[2022-12-06] MEDS ORDERED: MEROPENEM 1GM IVPB 100 ML IV SCH (22:00)
[2022-12-06 23:54] VITALS: BP 119/69
[2022-12-07] VITALS (30 sets, daily range): BP systolic 103–140; BP diastolic 65–87
[2022-12-07] MEDS: InsuLIN REG 1unit/0.01ml Soln (100units/ml) SC SCH ×4 (01:15→20:22)
[2022-12-07] MEDS: VANCOMYCIN 1GM/250ML 250 ML IV SCH ×2 (01:22→13:57)
[2022-12-07] MEDS: dilTIAZem 125mg/125ml BAG KIT 100 ML IV SCH ×2 (02:24→17:30)
[2022-12-07] MEDS: SODIUM CHLORIDE 0.9% 1,000 ML IV SCH ×2 (05:18→16:02)
[2022-12-07] MEDS: LEVALBUTEROL HCL 1.25 MG/3 ML NEB NEB SCH ×3 (05:50→18:58)
[2022-12-07] MEDS: ACCU-CHEK COMFORT CURVE STRIP VI SCH ×5 (06:00→20:21)
[2022-12-07 06:23] LABS: Basophils # (auto) 0 10 ^3/uL (0-0.2); Eosinophils # (auto) 0 10 ^3/uL (0-0.8); Hematocrit 38.6 % (41.0-53.0); Hemoglobin 13.1 g/dL (13.5-17.5); Lymphocytes # (auto) 0.5 10 ^3/uL (0.4-5.4); Lymphocytes % (auto) 2.5 % (10.0-50.0); Mean Corpuscular Hemoglobin 31.4 pg (28.0-32.0); Mean Corpuscular Hgb Conc. 33.9 g/dL (32.0-36.0); Mean Corpuscular Volume 92.6 fL (80.0-100.0); Monocytes # (auto) 1.1 10 ^3/uL (0-1.3); Monocytes % (auto) 5.7 % (0.0-12.0); Neutrophils # (auto) 18.3 10 ^3/uL (1.6-8.6); Neutrophils % (auto) 91.8 % (37.0-80.0); Nucleated Red Blood Cells % 0.1 %; Red Blood Cells 4.17 10^6/uL (4.5-5.90); Red Cell Distribution Width 14.2 % (11.8-14.3); White Blood Cell 19.9 10^3/uL (4.4-10.8)
[2022-12-07 06:26] LABS: Calcium 8.9 mg/dL (8.5-10.1); Potassium 3.7 mmol/L (3.5-5.1)
[2022-12-07 06:29] LABS: BUN/Creatinine Ratio 46.5 (10.0-20.0); Bilirubin, Total 0.9 mg/dL (0.2-1.0); Total Protein 5.7 g/dL (6.4-8.2)
[2022-12-07] MEDS: CEFEPIME 1GM/ 50ML 50 ML IV SCH ×2 (06:38→15:08)
[2022-12-07] MEDS ORDERED: CALCITONIN 200 UNIT/SPRAY NASAL SCH (10:00)
[2022-12-07] MEDS ORDERED: levoFLOXacin 500MG 100 ML IV SCH (10:00)
[2022-12-07] MEDS ORDERED: LISINOPRIL 20 MG TAB PO SCH (10:00)
[2022-12-07] MEDS: PANTOPRAZOLE 40 MG/10 ML VIAL INJ IV SCH (10:38)
[2022-12-07] MEDS: CARVEDILOL 3.125 MG TAB PO SCH ×2 (10:39→22:00)
[2022-12-07] MEDS: AMIODARONE HCL 200 MG TAB PO SCH ×2 (10:39→22:00)
[2022-12-07] MEDS: SPIRONOLACTONE 25 MG TAB PO SCH (10:39)
[2022-12-07] MEDS: MEROPENEM 1GM IVPB 100 ML IV SCH ×2 (10:42→20:00)
[2022-12-07] MEDS: IPRATROPIUM BROM 0.5 MG/2.5ML INH SOL NEB PRN ×2 (12:23→18:58)
[2022-12-07] MEDS ORDERED: DEXTROSE (50%) 50ML SYRG IV PRN (15:45)
[2022-12-08] VITALS (93 sets, daily range): BP systolic 104–156; BP diastolic 61–101
[2022-12-08] MEDS: IPRATROPIUM BROM 0.5 MG/2.5ML INH SOL NEB PRN ×4 (00:08→18:11)
[2022-12-08] MEDS: LEVALBUTEROL HCL 1.25 MG/3 ML NEB NEB SCH ×4 (00:08→18:11)
[2022-12-08] MEDS: ACCU-CHEK COMFORT CURVE STRIP VI SCH ×7 (00:11→18:00)
[2022-12-08] MEDS: InsuLIN REG 1unit/0.01ml Soln (100units/ml) SC SCH ×4 (00:12→17:58)
[2022-12-08] MEDS: MEROPENEM 1GM IVPB 100 ML IV SCH ×3 (02:43→20:32)
[2022-12-08 03:03] LABS: Basophils # (auto) 0 10 ^3/uL (0-0.2); Basophils % (auto) 0.2 % (0.0-2.0); Eosinophils # (auto) 0 10 ^3/uL (0-0.8); Hemoglobin 13.2 g/dL (13.5-17.5); Lymphocytes # (auto) 0.4 10 ^3/uL (0.4-5.4); Lymphocytes % (auto) 2.3 % (10.0-50.0); Mean Corpuscular Hemoglobin 31.2 pg (28.0-32.0); Mean Corpuscular Volume 91.9 fL (80.0-100.0); Monocytes # (auto) 1.3 10 ^3/uL (0-1.3); Monocytes % (auto) 7.1 % (0.0-12.0); Neutrophils # (auto) 16.3 10 ^3/uL (1.6-8.6); Neutrophils % (auto) 90.4 % (37.0-80.0); Red Blood Cells 4.24 10^6/uL (4.5-5.90)
[2022-12-08 03:22] LABS: Albumin 1.8 g/dL (3.4-5.0); BUN/Creatinine Ratio 53.1 (10.0-20.0); Calcium 8.9 mg/dL (8.5-10.1); Potassium 4.1 mmol/L (3.5-5.1)
[2022-12-08 03:25] LABS: Bilirubin, Total 0.8 mg/dL (0.2-1.0); Total Protein 5.5 g/dL (6.4-8.2)
[2022-12-08] MEDS: VANCOMYCIN 1GM/250ML 250 ML IV SCH ×2 (05:18→19:25)
[2022-12-08] MEDS ORDERED: dilTIAZem 25 MG/5 ML VIAL IV ONE (06:39)
[2022-12-08] MEDS: dilTIAZem 125mg/125ml BAG KIT 100 ML IV SCH ×2 (06:52→20:26)
[2022-12-08] MEDS: SODIUM CHLORIDE 0.9% 1,000 ML IV SCH (08:25)
[2022-12-08] MEDS: AMIODARONE HCL 200 MG TAB PO SCH ×2 (10:00→21:20)
[2022-12-08] MEDS: CARVEDILOL 3.125 MG TAB PO SCH ×2 (10:00→21:20)
[2022-12-08] MEDS: PANTOPRAZOLE 40 MG/10 ML VIAL INJ IV SCH (10:25)
[2022-12-08] MEDS ORDERED: FUROSEMIDE 20 MG/2 ML VIAL IV ONE (12:45)
[2022-12-09] VITALS (68 sets, daily range): BP systolic 91–145; BP diastolic 45–95
[2022-12-09] MEDS: LEVALBUTEROL HCL 1.25 MG/3 ML NEB NEB SCH ×5 (00:07→23:59)
[2022-12-09] MEDS: IPRATROPIUM BROM 0.5 MG/2.5ML INH SOL NEB PRN ×5 (00:07→23:59)
[2022-12-09] MEDS: ACCU-CHEK COMFORT CURVE STRIP VI SCH ×5 (00:14→23:30)
[2022-12-09] MEDS: InsuLIN REG 1unit/0.01ml Soln (100units/ml) SC SCH ×5 (00:15→23:30)
[2022-12-09] MEDS: MEROPENEM 1GM IVPB 100 ML IV SCH ×3 (03:53→18:39)
[2022-12-09 04:19] LABS: Basophils # (auto) 0 10 ^3/uL (0-0.2); Basophils % (auto) 0.1 % (0.0-2.0); Eosinophils # (auto) 0 10 ^3/uL (0-0.8); Hematocrit 38.8 % (41.0-53.0); Hemoglobin 13.1 g/dL (13.5-17.5); Lymphocytes # (auto) 0.4 10 ^3/uL (0.4-5.4); Lymphocytes % (auto) 2.3 % (10.0-50.0); Mean Corpuscular Hgb Conc. 33.7 g/dL (32.0-36.0); Mean Corpuscular Volume 92.1 fL (80.0-100.0); Monocytes # (auto) 1.4 10 ^3/uL (0-1.3); Neutrophils # (auto) 14.1 10 ^3/uL (1.6-8.6); Neutrophils % (auto) 88.6 % (37.0-80.0); Red Blood Cells 4.21 10^6/uL (4.5-5.90); Red Cell Distribution Width 14.1 % (11.8-14.3); White Blood Cell 15.8 10^3/uL (4.4-10.8)
[2022-12-09 04:27] LABS: Potassium 3.5 mmol/L (3.5-5.1)
[2022-12-09 04:32] LABS: BUN/Creatinine Ratio 54.2 (10.0-20.0); Calcium 8.6 mg/dL (8.5-10.1)
[2022-12-09] MEDS: PANTOPRAZOLE 40 MG/10 ML VIAL INJ IV SCH (08:42)
[2022-12-09] MEDS: VANCOMYCIN 1GM/250ML 250 ML IV SCH ×2 (08:42→21:46)
[2022-12-09] MEDS: dilTIAZem 125mg/125ml BAG KIT 100 ML IV SCH ×2 (08:43→18:16)
[2022-12-09] MEDS: CARVEDILOL 3.125 MG TAB PO SCH ×3 (10:00→21:47)
[2022-12-09] MEDS: AMIODARONE HCL 200 MG TAB PO SCH ×2 (10:00→21:47)
[2022-12-09] MEDS ORDERED: HYDROcodone-ACET 5/325MG TAB PO ONE (16:00)
[2022-12-09] MEDS ORDERED: HYDROcodone-ACET 5/325MG TAB ONE (16:09)
[2022-12-09] MEDS ORDERED: MORPHINE SULFATE INJ 2 MG/ml SYRG IV PRN (16:30)
[2022-12-10] VITALS (42 sets, daily range): BP systolic 104–147; BP diastolic 59–95
[2022-12-10] MEDS: MEROPENEM 1GM IVPB 100 ML IV SCH ×3 (03:29→18:25)
[2022-12-10 04:35] LABS: Basophils # (auto) 0 10 ^3/uL (0-0.2); Basophils % (auto) 0.2 % (0.0-2.0); Eosinophils # (auto) 0 10 ^3/uL (0-0.8); Eosinophils % (auto) 0.1 % (0.0-7.0); Hematocrit 38.5 % (41.0-53.0); Hemoglobin 12.8 g/dL (13.5-17.5); Lymphocytes # (auto) 0.4 10 ^3/uL (0.4-5.4); Lymphocytes % (auto) 3.3 % (10.0-50.0); Mean Corpuscular Hemoglobin 30.9 pg (28.0-32.0); Mean Corpuscular Hgb Conc. 33.4 g/dL (32.0-36.0); Mean Corpuscular Volume 92.7 fL (80.0-100.0); Monocytes # (auto) 1.5 10 ^3/uL (0-1.3); Monocytes % (auto) 11.9 % (0.0-12.0); Neutrophils # (auto) 10.5 10 ^3/uL (1.6-8.6); Neutrophils % (auto) 84.5 % (37.0-80.0); Red Blood Cells 4.15 10^6/uL (4.5-5.90); Red Cell Distribution Width 13.8 % (11.8-14.3); White Blood Cell 12.4 10^3/uL (4.4-10.8)
[2022-12-10 04:46] LABS: BUN/Creatinine Ratio 64.8 (10.0-20.0); Calcium 8.9 mg/dL (8.5-10.1); Potassium 3.4 mmol/L (3.5-5.1)
[2022-12-10] MEDS: ACCU-CHEK COMFORT CURVE STRIP VI SCH ×4 (05:36→21:34)
[2022-12-10] MEDS: InsuLIN REG 1unit/0.01ml Soln (100units/ml) SC SCH ×4 (05:57→21:33)
[2022-12-10] MEDS: IPRATROPIUM BROM 0.5 MG/2.5ML INH SOL NEB PRN ×3 (06:18→18:11)
[2022-12-10] MEDS: LEVALBUTEROL HCL 1.25 MG/3 ML NEB NEB SCH ×3 (06:18→18:11)
[2022-12-10] MEDS: PANTOPRAZOLE 40 MG/10 ML VIAL INJ IV SCH (09:09)
[2022-12-10] MEDS: AMIODARONE HCL 200 MG TAB PO SCH ×2 (09:10→21:34)
[2022-12-10] MEDS: CARVEDILOL 3.125 MG TAB PO SCH ×2 (09:10→21:33)
[2022-12-10] MEDS ORDERED: VANCOMYCIN 1GM/250ML 250 ML IV SCH (11:15)
[2022-12-10] MEDS: VANCOMYCIN 1GM/250ML 250 ML IV SCH ×2 (12:26→23:32)
[2022-12-10] MEDS ORDERED: POTASSIUM EFFERVESENT TAB 25 MEQ PO ONE (15:00)
[2022-12-10] MEDS ORDERED: DEXTROSE (50%) 50ML SYRG IV PRN (15:00)
[2022-12-11] VITALS (23 sets, daily range): BP systolic 104–165; BP diastolic 63–100
[2022-12-11] MEDS: LEVALBUTEROL HCL 1.25 MG/3 ML NEB NEB SCH ×4 (00:18→18:29)
[2022-12-11] MEDS: IPRATROPIUM BROM 0.5 MG/2.5ML INH SOL NEB PRN ×4 (00:18→18:29)
[2022-12-11] MEDS: MEROPENEM 1GM IVPB 100 ML IV SCH ×3 (02:31→18:48)
[2022-12-11 03:29] LABS: Basophils # (auto) 0 10 ^3/uL (0-0.2); Basophils % (auto) 0.4 % (0.0-2.0); Eosinophils # (auto) 0.1 10 ^3/uL (0-0.8); Hematocrit 38.3 % (41.0-53.0); Hemoglobin 12.8 g/dL (13.5-17.5); Lymphocytes # (auto) 0.6 10 ^3/uL (0.4-5.4); Lymphocytes % (auto) 5.9 % (10.0-50.0); Mean Corpuscular Hemoglobin 31.3 pg (28.0-32.0); Mean Corpuscular Hgb Conc. 33.5 g/dL (32.0-36.0); Mean Corpuscular Volume 93.5 fL (80.0-100.0); Monocytes # (auto) 1.4 10 ^3/uL (0-1.3); Monocytes % (auto) 14.4 % (0.0-12.0); Neutrophils # (auto) 7.8 10 ^3/uL (1.6-8.6); Neutrophils % (auto) 78.3 % (37.0-80.0); Nucleated Red Blood Cells % 0.1 %; Red Blood Cells 4.09 10^6/uL (4.5-5.90); Red Cell Distribution Width 13.9 % (11.8-14.3); White Blood Cell 9.9 10^3/uL (4.4-10.8)
[2022-12-11 03:44] LABS: BUN/Creatinine Ratio 53.2 (10.0-20.0); Calcium 8.9 mg/dL (8.5-10.1); Potassium 3.8 mmol/L (3.5-5.1)
[2022-12-11] MEDS: InsuLIN REG 1unit/0.01ml Soln (100units/ml) SC SCH ×4 (06:54→22:07)
[2022-12-11] MEDS: ACCU-CHEK COMFORT CURVE STRIP VI SCH ×4 (06:54→22:04)
[2022-12-11] MEDS: AMIODARONE HCL 200 MG TAB PO SCH ×2 (09:59→22:04)
[2022-12-11] MEDS: CARVEDILOL 3.125 MG TAB PO SCH ×2 (09:59→22:05)
[2022-12-11] MEDS: VANCOMYCIN 1GM/250ML 250 ML IV SCH ×2 (10:01→23:15)
[2022-12-11] MEDS ORDERED: Glucerna 1.2 Cal 1Liter BOTTLE GT SCH (17:30)
[2022-12-12] MEDS: IPRATROPIUM BROM 0.5 MG/2.5ML INH SOL NEB PRN ×4 (00:31→19:10)
[2022-12-12] MEDS: LEVALBUTEROL HCL 1.25 MG/3 ML NEB NEB SCH ×4 (00:31→19:10)
[2022-12-12] MEDS: MEROPENEM 1GM IVPB 100 ML IV SCH ×3 (03:34→19:03)
[2022-12-12] MEDS: ACCU-CHEK COMFORT CURVE STRIP VI SCH ×4 (06:37→21:13)
[2022-12-12] MEDS: InsuLIN REG 1unit/0.01ml Soln (100units/ml) SC SCH ×4 (06:39→21:33)
[2022-12-12 09:00] VITALS: BP 119/69
[2022-12-12] MEDS: ASPirin 81 mg TAB PO SCH (11:07)
[2022-12-12] MEDS: CARVEDILOL 3.125 MG TAB PO SCH ×2 (11:07→21:13)
[2022-12-12] MEDS: AMIODARONE HCL 200 MG TAB PO SCH ×2 (11:07→21:13)
[2022-12-12] MEDS ORDERED: VANCOMYCIN 1GM/250ML 250 ML IV SCH (12:00)
[2022-12-12 13:00] VITALS: BP 99/62
[2022-12-12 17:00] VITALS: BP 125/82
[2022-12-12 17:19] VITALS: BP 99/62
[2022-12-12 22:00] VITALS: BP 140/83
[2022-12-13] MEDS: LEVALBUTEROL HCL 1.25 MG/3 ML NEB NEB SCH ×4 (00:08→18:01)
[2022-12-13] MEDS: MEROPENEM 1GM IVPB 100 ML IV SCH ×3 (02:05→18:53)
[2022-12-13] MEDS: ONDANSETRON HCL 4 MG/2 ML VIAL IV PRN (03:50)
[2022-12-13 05:00] VITALS: BP 127/79
[2022-12-13] MEDS: ACCU-CHEK COMFORT CURVE STRIP VI SCH ×4 (06:02→22:12)
[2022-12-13 06:05] LABS: Calcium 9.1 mg/dL (8.5-10.1); Potassium 3.9 mmol/L (3.5-5.1)
[2022-12-13 06:06] LABS: Basophils # (auto) 0 10 ^3/uL (0-0.2); Basophils % (auto) 0.3 % (0.0-2.0); Eosinophils # (auto) 0 10 ^3/uL (0-0.8); Eosinophils % (auto) 0.3 % (0.0-7.0); Hemoglobin 12.9 g/dL (13.5-17.5); Lymphocytes # (auto) 0.5 10 ^3/uL (0.4-5.4); Lymphocytes % (auto) 4.4 % (10.0-50.0); Mean Corpuscular Hemoglobin 30.9 pg (28.0-32.0); Mean Corpuscular Hgb Conc. 33.1 g/dL (32.0-36.0); Mean Corpuscular Volume 93.4 fL (80.0-100.0); Monocytes % (auto) 17.9 % (0.0-12.0); Neutrophils # (auto) 8.8 10 ^3/uL (1.6-8.6); Neutrophils % (auto) 77.1 % (37.0-80.0); Red Blood Cells 4.18 10^6/uL (4.5-5.90); White Blood Cell 11.4 10^3/uL (4.4-10.8)
[2022-12-13] MEDS: InsuLIN REG 1unit/0.01ml Soln (100units/ml) SC SCH ×4 (06:09→22:21)
[2022-12-13 08:30] VITALS: BP 111/62
[2022-12-13] MEDS: VANCOMYCIN 1GM/250ML 250 ML IV SCH (08:59)
[2022-12-13] MEDS: AMIODARONE HCL 200 MG TAB PO SCH ×2 (08:59→22:11)
[2022-12-13] MEDS: ASPirin 81 mg TAB PO SCH (09:00)
[2022-12-13] MEDS: CARVEDILOL 3.125 MG TAB PO SCH ×2 (09:00→22:11)
[2022-12-13] MEDS ORDERED: Glucerna 1.2 Cal 1Liter BOTTLE GT SCH (12:45)
[2022-12-13 14:00] VITALS: BP 111/76
[2022-12-13 15:57] VITALS: BP 99/62
[2022-12-13 22:00] VITALS: BP 114/64
[2022-12-14] MEDS: LEVALBUTEROL HCL 1.25 MG/3 ML NEB NEB SCH ×4 (00:16→19:30)
[2022-12-14] MEDS: MEROPENEM 1GM IVPB 100 ML IV SCH ×3 (03:12→19:06)
[2022-12-14] MEDS: VANCOMYCIN 1GM/250ML 250 ML IV SCH ×2 (03:21→22:22)
[2022-12-14 05:23] VITALS: BP 115/76
[2022-12-14 06:36] LABS: Basophils # (auto) 0.1 10 ^3/uL (0-0.2); Basophils % (auto) 0.6 % (0.0-2.0); Eosinophils # (auto) 0.1 10 ^3/uL (0-0.8); Eosinophils % (auto) 0.7 % (0.0-7.0); Hematocrit 39.1 % (41.0-53.0); Hemoglobin 13.1 g/dL (13.5-17.5); Lymphocytes # (auto) 0.4 10 ^3/uL (0.4-5.4); Lymphocytes % (auto) 3.9 % (10.0-50.0); Mean Corpuscular Hemoglobin 31.1 pg (28.0-32.0); Mean Corpuscular Hgb Conc. 33.5 g/dL (32.0-36.0); Mean Corpuscular Volume 93.1 fL (80.0-100.0); Monocytes # (auto) 1.7 10 ^3/uL (0-1.3); Monocytes % (auto) 16.8 % (0.0-12.0); Nucleated Red Blood Cells % 0.1 %; White Blood Cell 10.3 10^3/uL (4.4-10.8)
[2022-12-14] MEDS: InsuLIN REG 1unit/0.01ml Soln (100units/ml) SC SCH ×4 (06:37→21:31)
[2022-12-14] MEDS: ACCU-CHEK COMFORT CURVE STRIP VI SCH ×4 (06:38→21:29)
[2022-12-14 06:48] LABS: BUN/Creatinine Ratio 48.3 (10.0-20.0); Calcium 9.1 mg/dL (8.5-10.1); Potassium 4.5 mmol/L (3.5-5.1)
[2022-12-14 09:00] VITALS: BP 105/68
[2022-12-14] MEDS: ASPirin 81 mg TAB PO SCH (10:05)
[2022-12-14] MEDS: AMIODARONE HCL 200 MG TAB PO SCH ×2 (10:05→21:20)
[2022-12-14] MEDS: CARVEDILOL 3.125 MG TAB PO SCH ×2 (10:06→21:21)
[2022-12-14 13:00] VITALS: BP 120/73
[2022-12-14 17:00] VITALS: BP 138/83
[2022-12-14] MEDS: IPRATROPIUM BROM 0.5 MG/2.5ML INH SOL NEB PRN (19:30)
[2022-12-15] MEDS: LEVALBUTEROL HCL 1.25 MG/3 ML NEB NEB SCH ×4 (00:24→18:07)
[2022-12-15] MEDS: IPRATROPIUM BROM 0.5 MG/2.5ML INH SOL NEB PRN ×4 (00:24→18:07)
[2022-12-15] MEDS: MEROPENEM 1GM IVPB 100 ML IV SCH ×3 (02:31→18:38)
[2022-12-15 05:21] VITALS: BP 146/80
[2022-12-15] MEDS: ACCU-CHEK COMFORT CURVE STRIP VI SCH ×4 (06:17→21:23)
[2022-12-15] MEDS: InsuLIN REG 1unit/0.01ml Soln (100units/ml) SC SCH ×4 (06:19→21:22)
[2022-12-15] MEDS: ASPirin 81 mg TAB PO SCH (08:19)
[2022-12-15] MEDS: CARVEDILOL 3.125 MG TAB PO SCH ×2 (08:19→21:02)
[2022-12-15] MEDS: AMIODARONE HCL 200 MG TAB PO SCH ×2 (08:20→20:59)
[2022-12-15 09:36] VITALS: BP 135/80
[2022-12-15 09:39] VITALS: BP 130/76
[2022-12-15 09:50] VITALS: BP 136/74
[2022-12-15 12:30] VITALS: BP 131/81
[2022-12-15 15:37] VITALS: BP 133/79
[2022-12-15] MEDS: VANCOMYCIN 1GM/250ML 250 ML IV SCH (16:28)
[2022-12-15] MEDS: HYDROcodone-ACET 5/325MG TAB PO PRN (20:58)
[2022-12-16] MEDS: LEVALBUTEROL HCL 1.25 MG/3 ML NEB NEB SCH ×4 (00:03→19:05)
[2022-12-16] MEDS: IPRATROPIUM BROM 0.5 MG/2.5ML INH SOL NEB PRN ×4 (00:03→19:05)
[2022-12-16] MEDS: MEROPENEM 1GM IVPB 100 ML IV SCH ×3 (03:01→18:44)
[2022-12-16 05:00] VITALS: BP 133/83
[2022-12-16] MEDS: ACCU-CHEK COMFORT CURVE STRIP VI SCH ×4 (06:15→23:29)
[2022-12-16] MEDS: InsuLIN REG 1unit/0.01ml Soln (100units/ml) SC SCH ×4 (06:23→22:58)
[2022-12-16 06:30] LABS: Albumin 1.7 g/dL (3.4-5.0); BUN/Creatinine Ratio 43.3 (10.0-20.0); Calcium 8.7 mg/dL (8.5-10.1); Phosphorus 2.2 mg/dL (2.5-4.90); Potassium 4.2 mmol/L (3.5-5.1)
[2022-12-16 08:49] VITALS: BP 121/77
[2022-12-16] MEDS: CARVEDILOL 3.125 MG TAB PO SCH ×2 (09:00→23:07)
[2022-12-16] MEDS: ASPirin 81 mg TAB PO SCH (09:01)
[2022-12-16] MEDS: AMIODARONE HCL 200 MG TAB PO SCH ×2 (09:01→23:05)
[2022-12-16] MEDS: VANCOMYCIN 1GM/250ML 250 ML IV SCH (10:03)
[2022-12-16] MEDS: HYDROcodone-ACET 5/325MG TAB PO PRN (10:03)
[2022-12-16 13:01] VITALS: BP 128/86
[2022-12-16] MEDS: ONDANSETRON HCL 4 MG/2 ML VIAL IV PRN (15:32)
[2022-12-16 16:37] VITALS: BP 111/74
[2022-12-16 22:00] VITALS: BP 116/82
[2022-12-17] MEDS: IPRATROPIUM BROM 0.5 MG/2.5ML INH SOL NEB PRN ×4 (01:14→23:39)
[2022-12-17] MEDS: LEVALBUTEROL HCL 1.25 MG/3 ML NEB NEB SCH ×5 (01:14→23:40)
[2022-12-17] MEDS: VANCOMYCIN 1GM/250ML 250 ML IV SCH ×2 (02:57→22:39)
[2022-12-17] MEDS: MEROPENEM 1GM IVPB 100 ML IV SCH ×3 (04:10→19:17)
[2022-12-17 05:00] VITALS: BP 134/86
[2022-12-17] MEDS: InsuLIN REG 1unit/0.01ml Soln (100units/ml) SC SCH ×4 (07:07→22:33)
[2022-12-17] MEDS: ACCU-CHEK COMFORT CURVE STRIP VI SCH ×4 (07:14→23:44)
[2022-12-17 09:00] VITALS: BP 122/57
[2022-12-17] MEDS: ASPirin 81 mg TAB PO SCH (09:22)
[2022-12-17] MEDS: AMIODARONE HCL 200 MG TAB PO SCH ×2 (09:23→22:37)
[2022-12-17] MEDS: CARVEDILOL 3.125 MG TAB PO SCH ×2 (09:24→22:38)
[2022-12-17] MEDS: HYDROcodone-ACET 5/325MG TAB PO PRN (11:44)
[2022-12-17 13:00] VITALS: BP 95/62
[2022-12-17 17:00] VITALS: BP 113/78
[2022-12-18] MEDS: MEROPENEM 1GM IVPB 100 ML IV SCH ×3 (02:36→18:43)
[2022-12-18] MEDS: InsuLIN REG 1unit/0.01ml Soln (100units/ml) SC SCH ×4 (06:26→22:59)
[2022-12-18 06:34] LABS: Basophils # (auto) 0.1 10 ^3/uL (0-0.2); Basophils % (auto) 1.1 % (0.0-2.0); Eosinophils # (auto) 0.1 10 ^3/uL (0-0.8); Eosinophils % (auto) 1.3 % (0.0-7.0); Hemoglobin 12.4 g/dL (13.5-17.5); Lymphocytes # (auto) 0.7 10 ^3/uL (0.4-5.4); Lymphocytes % (auto) 7.4 % (10.0-50.0); Mean Corpuscular Hemoglobin 31.2 pg (28.0-32.0); Mean Corpuscular Hgb Conc. 33.5 g/dL (32.0-36.0); Mean Corpuscular Volume 93.2 fL (80.0-100.0); Monocytes # (auto) 1.2 10 ^3/uL (0-1.3); Neutrophils # (auto) 7.3 10 ^3/uL (1.6-8.6); Neutrophils % (auto) 77.2 % (37.0-80.0); Nucleated Red Blood Cells % 0.1 %; Red Blood Cells 3.97 10^6/uL (4.5-5.90); Red Cell Distribution Width 14.1 % (11.8-14.3); White Blood Cell 9.4 10^3/uL (4.4-10.8)
[2022-12-18 06:37] LABS: BUN/Creatinine Ratio 51.9 (10.0-20.0); Potassium 3.7 mmol/L (3.5-5.1)
[2022-12-18 06:45] LABS: Calcium 8.5 mg/dL (8.5-10.1)
[2022-12-18] MEDS: ACCU-CHEK COMFORT CURVE STRIP VI SCH ×4 (06:46→22:40)
[2022-12-18] MEDS: IPRATROPIUM BROM 0.5 MG/2.5ML INH SOL NEB PRN ×2 (07:20→20:02)
[2022-12-18] MEDS: LEVALBUTEROL HCL 1.25 MG/3 ML NEB NEB SCH ×3 (07:20→20:04)
[2022-12-18] MEDS: AMIODARONE HCL 200 MG TAB PO SCH ×2 (08:57→22:39)
[2022-12-18] MEDS: ASPirin 81 mg TAB PO SCH (08:57)
[2022-12-18] MEDS: CARVEDILOL 3.125 MG TAB PO SCH ×2 (08:58→22:38)
[2022-12-18 09:00] VITALS: BP 114/78
[2022-12-18 13:00] VITALS: BP 96/65
[2022-12-18 15:15] VITALS: BP 98/64
[2022-12-18] MEDS: VANCOMYCIN 1GM/250ML 250 ML IV SCH (16:11)
[2022-12-18 17:00] VITALS: BP 78/51
[2022-12-18] MEDS ORDERED: SODIUM CHLORIDE 0.9% 1,000 ML IV ONE (18:00)
[2022-12-18 18:45] VITALS: BP 125/89
[2022-12-18 18:53] LABS: Basophils # (auto) 0.1 10 ^3/uL (0-0.2); Basophils % (auto) 0.7 % (0.0-2.0); Eosinophils # (auto) 0.1 10 ^3/uL (0-0.8); Eosinophils % (auto) 1.2 % (0.0-7.0); Hematocrit 39.4 % (41.0-53.0); Hemoglobin 12.9 g/dL (13.5-17.5); Lymphocytes # (auto) 0.6 10 ^3/uL (0.4-5.4); Lymphocytes % (auto) 7.4 % (10.0-50.0); Mean Corpuscular Hemoglobin 30.6 pg (28.0-32.0); Mean Corpuscular Hgb Conc. 32.9 g/dL (32.0-36.0); Mean Corpuscular Volume 93.1 fL (80.0-100.0); Monocytes # (auto) 1.2 10 ^3/uL (0-1.3); Monocytes % (auto) 13.6 % (0.0-12.0); Neutrophils # (auto) 6.7 10 ^3/uL (1.6-8.6); Neutrophils % (auto) 77.1 % (37.0-80.0); Red Blood Cells 4.23 10^6/uL (4.5-5.90); Red Cell Distribution Width 14.1 % (11.8-14.3); White Blood Cell 8.7 10^3/uL (4.4-10.8)
[2022-12-18 19:08] LABS: Albumin 1.6 g/dL (3.4-5.0); Calcium 8.4 mg/dL (8.5-10.1); Potassium 3.6 mmol/L (3.5-5.1)
[2022-12-18 19:09] LABS: Lactic Acid w/Reflex 2.1 mmol/L (0.4-2.0)
[2022-12-18 19:13] LABS: BUN/Creatinine Ratio 42.2 (10.0-20.0); Bilirubin, Total 0.6 mg/dL (0.2-1.0); Total Protein 4.7 g/dL (6.4-8.2)
[2022-12-18 22:00] VITALS: BP 100/64
[2022-12-19] MEDS: MEROPENEM 1GM IVPB 100 ML IV SCH (02:44)
[2022-12-19 05:00] VITALS: BP_SYST 132; BP_DIAS 75; BP_DIAS 79
[2022-12-19] MEDS: IPRATROPIUM BROM 0.5 MG/2.5ML INH SOL NEB PRN ×3 (06:19→19:00)
[2022-12-19] MEDS: LEVALBUTEROL HCL 1.25 MG/3 ML NEB NEB SCH ×4 (06:20→19:00)
[2022-12-19] MEDS: ACCU-CHEK COMFORT CURVE STRIP VI SCH ×4 (06:48→21:46)
[2022-12-19] MEDS: InsuLIN REG 1unit/0.01ml Soln (100units/ml) SC SCH ×4 (06:49→21:41)
[2022-12-19 09:00] VITALS: BP 95/58
[2022-12-19] MEDS: ASPirin 81 mg TAB PO SCH (09:24)
[2022-12-19] MEDS: VANCOMYCIN 1GM/250ML 250 ML IV SCH (09:24)
[2022-12-19] MEDS ORDERED: levoFLOXacin 500 MG TAB PO SCH (10:35)
[2022-12-19 13:00] VITALS: BP 106/62
[2022-12-19] MEDS: AMIODARONE HCL 200 MG TAB PO SCH ×2 (13:24→21:45)
[2022-12-19] MEDS: DOXYCYCLINE 100 MG TAB/CAP PO SCH ×2 (13:25→21:45)
[2022-12-19] MEDS: CLINDAMYCIN HCL 150 MG CAP PO SCH ×2 (13:39→21:45)
[2022-12-19 17:00] VITALS: BP 114/75
[2022-12-19] MEDS: CARVEDILOL 3.125 MG TAB PO SCH (21:46)
[2022-12-19 22:00] VITALS: BP 125/76
[2022-12-20] MEDS: LEVALBUTEROL HCL 1.25 MG/3 ML NEB NEB SCH ×4 (00:15→18:37)
[2022-12-20] MEDS: HYDROcodone-ACET 5/325MG TAB PO PRN (04:48)
[2022-12-20] MEDS: CLINDAMYCIN HCL 150 MG CAP PO SCH ×3 (06:08→22:07)
[2022-12-20] MEDS: ACCU-CHEK COMFORT CURVE STRIP VI SCH ×4 (06:12→22:08)
[2022-12-20] MEDS: InsuLIN REG 1unit/0.01ml Soln (100units/ml) SC SCH ×4 (06:14→22:20)
[2022-12-20 06:36] LABS: Basophils # (auto) 0.1 10 ^3/uL (0-0.2); Basophils % (auto) 0.6 % (0.0-2.0); Eosinophils # (auto) 0.1 10 ^3/uL (0-0.8); Eosinophils % (auto) 1.2 % (0.0-7.0); Hematocrit 39.4 % (41.0-53.0); Hemoglobin 13.3 g/dL (13.5-17.5); Lymphocytes # (auto) 0.6 10 ^3/uL (0.4-5.4); Lymphocytes % (auto) 6.1 % (10.0-50.0); Mean Corpuscular Hemoglobin 31.2 pg (28.0-32.0); Mean Corpuscular Hgb Conc. 33.7 g/dL (32.0-36.0); Mean Corpuscular Volume 92.4 fL (80.0-100.0); Monocytes # (auto) 1.1 10 ^3/uL (0-1.3); Monocytes % (auto) 12.3 % (0.0-12.0); Neutrophils # (auto) 7.3 10 ^3/uL (1.6-8.6); Neutrophils % (auto) 79.8 % (37.0-80.0); Red Blood Cells 4.26 10^6/uL (4.5-5.90); White Blood Cell 9.2 10^3/uL (4.4-10.8)
[2022-12-20 06:48] LABS: BUN/Creatinine Ratio 43.1 (10.0-20.0); Calcium 8.3 mg/dL (8.5-10.1); Potassium 3.7 mmol/L (3.5-5.1)
[2022-12-20] MEDS: IPRATROPIUM BROM 0.5 MG/2.5ML INH SOL NEB PRN ×2 (06:51→18:37)
[2022-12-20] MEDS: DOXYCYCLINE 100 MG TAB/CAP PO SCH ×2 (09:06→22:07)
[2022-12-20] MEDS: AMIODARONE HCL 200 MG TAB PO SCH ×2 (09:07→22:07)
[2022-12-20] MEDS: CARVEDILOL 3.125 MG TAB PO SCH ×2 (09:07→22:08)
[2022-12-20] MEDS: ASPirin 81 mg TAB PO SCH (09:07)
[2022-12-20 09:08] VITALS: BP 107/68
[2022-12-20 12:30] VITALS: BP 111/68
[2022-12-20 15:55] VITALS: BP 130/78
[2022-12-21] MEDS: CLINDAMYCIN HCL 150 MG CAP PO SCH ×2 (05:56→13:36)
[2022-12-21] MEDS: ACCU-CHEK COMFORT CURVE STRIP VI SCH ×3 (05:59→17:44)
[2022-12-21] MEDS: InsuLIN REG 1unit/0.01ml Soln (100units/ml) SC SCH ×3 (05:59→17:45)
[2022-12-21] MEDS: IPRATROPIUM BROM 0.5 MG/2.5ML INH SOL NEB PRN (07:38)
[2022-12-21] MEDS: LEVALBUTEROL HCL 1.25 MG/3 ML NEB NEB SCH ×3 (07:39→13:00)
[2022-12-21] MEDS: AMIODARONE HCL 200 MG TAB PO SCH (09:36)
[2022-12-21] MEDS: ASPirin 81 mg TAB PO SCH (09:36)
[2022-12-21] MEDS: DOXYCYCLINE 100 MG TAB/CAP PO SCH (09:36)
[2022-12-21] MEDS: CARVEDILOL 3.125 MG TAB PO SCH (09:40)
[2022-12-21 13:40] VITALS: BP 125/76
[2022-12-21 14:25] VITALS: BP 126/74
== END 2022-12-21 18:30 | DRG 871 ==
LOC: ER 08:53 → EDBD 08:53 → TELE 14:20 → ICU WEST 12-07 16:58 → TELE-EAST 12-11 23:16
PROVIDERS: ADMIT Nurse Practitioner Family; ATTEND Internal Medicine
PROC: 5A09357 Assistance with Respiratory Ventilation, Less than 24 Consecutive Hours, Continuous Positive Airway Pressure (ICD-10-PCS; principal; 2022-12-06)
PROC: 5A09357 Assistance with Respiratory Ventilation, Less than 24 Consecutive Hours, Continuous Positive Airway Pressure (ICD-10-PCS; 2022-12-07)
PROC: 5A0935A Assistance with Respiratory Ventilation, Less than 24 Consecutive Hours, High Flow/Velocity Cannula (ICD-10-PCS; 2022-12-07)
PROC: 5A09357 Assistance with Respiratory Ventilation, Less than 24 Consecutive Hours, Continuous Positive Airway Pressure (ICD-10-PCS; 2022-12-08)
PROC: 5A0935A Assistance with Respiratory Ventilation, Less than 24 Consecutive Hours, High Flow/Velocity Cannula (ICD-10-PCS; 2022-12-08)
PROC: 5A09357 Assistance with Respiratory Ventilation, Less than 24 Consecutive Hours, Continuous Positive Airway Pressure (ICD-10-PCS; 2022-12-09)
PROC: 05HB33Z Insertion of Infusion Device into Right Basilic Vein, Percutaneous Approach (ICD-10-PCS; 2022-12-09)
PROC: B54MZZA Ultrasonography of Right Upper Extremity Veins, Guidance (ICD-10-PCS; 2022-12-09)
DX: A41.9 Sepsis, unspecified organism (principal); E43 Unspecified severe protein-calorie malnutrition; J96.01 Acute respiratory failure with hypoxia; I50.23 Acute on chronic systolic (congestive) heart failure; I62.00 Nontraumatic subdural hemorrhage, unspecified; J69.0 Pneumonitis due to inhalation of food and vomit; G92.8 Other toxic encephalopathy; E87.1 Hypo-osmolality and hyponatremia; E87.4 Mixed disorder of acid-base balance; I48.21 Permanent atrial fibrillation; I25.10 Atherosclerotic heart disease of native coronary artery without angina pectoris; N40.0 Benign prostatic hyperplasia without lower urinary tract symptoms; I71.40 Abdominal aortic aneurysm, without rupture, unspecified; I25.5 Ischemic cardiomyopathy; Z66 Do not resuscitate; D64.9 Anemia, unspecified; Z20.822 Contact with and (suspected) exposure to COVID-19; E11.65 Type 2 diabetes mellitus with hyperglycemia; E86.0 Dehydration; I11.0 Hypertensive heart disease with heart failure; Y95 Nosocomial condition; R62.7 Adult failure to thrive; Z68.20 Body mass index [BMI] 20.0-20.9, adult; E11.51 Type 2 diabetes mellitus with diabetic peripheral angiopathy without gangrene; I25.2 Old myocardial infarction; E78.5 Hyperlipidemia, unspecified; Z86.73 Personal history of transient ischemic attack (TIA), and cerebral infarction without residual deficits; Z82.3 Family history of stroke; Z80.0 Family history of malignant neoplasm of digestive organs; Z79.82 Long term (current) use of aspirin; Z91.81 History of falling; Z95.5 Presence of coronary angioplasty implant and graft; Z88.0 Allergy status to penicillin; Z79.02 Long term (current) use of antithrombotics/antiplatelets
CPT/HCPCS: 36415; 36600; 70450; 71045; 80048; 80053; 80069; 80202; 81001; 82805; 82962; 83605; 83880; 84484; 85025; 85610; 85652; 85730; 86141; 86850; 86900; 86901; 87040; 87070; 87081; 87205; 87426; 93005; 94640; 94660; 94668; 95819; 96361; 96365; 97110; 97116; 97163; 97530; C9113; G0378; J1100; J1815; J1885; J1956; J2185; J2405; J7060